=== PATIENT | male | born 1960 | race Caucasian/White ===

== ENCOUNTER → 2017-04-18 14:09 | Outpatient (CLI) | payer OTHER, SELFPAY ==
--- NOTE | 2017-04-18 14:21 | RAD_ITS ---
STUDY: X-RAY - CERVICAL SPINE REASON FOR EXAM: Male, 56 years old. Shoulder pain. TECHNIQUE: 6 view(s) of the cervical spine were obtained including oblique views. COMPARISON: None FINDINGS: Normal anterior atlantoaxial articulation. Normal odontoid process. There is straightening of the normal cervical lordosis. There is multi-level endplate spondylosis. Marked degree of disc space narrowing at the C6-C7 level. Mild degree of disc space narrowing at the C5-C6 level. Normal visualized intervertebral neuroforamina. The soft tissue structures are unremarkable. RAD/Cerv Spine 4 or 5 Views IMPRESSION: Multilevel spondylosis and disc space narrowing at the C5-C6 and C6-C7 levels. Electronically Signed: Hayes Bhardwaj MD at 9:32 EST Tel [phone], Service support ,
== END ==
PROVIDERS: Family Provider Family Medicine; PCP Family Medicine; Visit Provider Nurse Practitioner Family
DX: M54.2 Cervicalgia (principal)
CPT/HCPCS: 72050

== ENCOUNTER → 2017-11-24 12:13 | Outpatient (CLI) | payer OTHER, SELFPAY ==
--- NOTE | 2017-11-24 12:28 | EKG12_ITS ---
Test Reason : PRE OP Blood Pressure : / mmHG Vent. Rate : 057 BPM Atrial Rate : 057 BPM P-R Int : 144 ms QRS Dur : 084 ms QT Int : 414 ms P-R-T Axes : -04 032 024 degrees QTc Int : 402 ms Sinus bradycardia with sinus arrhythmia Otherwise normal ECG Confirmed by JIM MCGHEE, ANDRE ([id number]), deputy editor in chief BELEN SHARMA ([id number] on 11/28/2017 2:37:52 PM Referred By: Ramana Barber Confirmed By:ANDRE FERNANDEZ MD
[2017-11-24 12:43] LABS: Hematocrit 48.8 % (40-54); Hemoglobin 16.4 g/dl (13.0-16.5); Mean Corp Hgb Conc 33.6 g/gl (32-36); Mean Corpuscular Hgb 33.7 pg (27.0-32.0); Mean Corpuscular Volume 100.2 fL (80-94); Mean Platelet Vol. 10.7 fl (6.2-12.0); Platelet Count 210 K/mm3 (150-450); RBC Distribution Width CV 12.8 % (11.6-14.6); RBC Distribution Width SD 46.8 fl (35.1-43.9); Red Blood Count 4.87 M/mm3 (4.6-6.2)
[2017-11-24 12:44] LABS: Scan Indicated on CBC? Y/N NO
[2017-11-24 13:18] LABS: Anion Gap 7 (5-15); BUN 20 mg/dL (7-18); Calcium,Total 9.1 mg/dL (8.5-10.1); Chloride 103 mmol/L (98-107); Creatinine, Serum 1.11 mg/dL (0.70-1.30); EST Glomerular Filtration Rate 72 mL/min (>60); Est Glom Filt Rate - Afr Amer 87 mL/min (>60); Glucose 102 mg/dL (74-106); Potassium 4.7 mmol/L (3.5-5.1); Sodium Level 140 mmol/L (136-145)
== END ==
PROVIDERS: Family Provider Family Medicine; PCP Family Medicine; Referring Provider Orthopaedic Surgery; Visit Provider Orthopaedic Surgery
DX: Z01.810 Encounter for preprocedural cardiovascular examination (principal); Z01.818 Encounter for other preprocedural examination
CPT/HCPCS: 36415; 80048; 85027; 93005

== ENCOUNTER 2021-04-08 20:25 | Emergency (ER) | payer OTHER, SELFPAY ==
[2021-04-08 20:26] VITALS: BP 122/86; PULSE 77; RESP 16; TEMP 36.6; O2SAT 98; BMI 37.0
--- NOTE | 2021-04-08 20:47 | CT_ITS ---
EXAM: CT SPINE - CERVICAL WITHOUT IV REASON FOR EXAM: Male, 60 years old. NECK PAIN pain/injury Individualized dose optimization techniques were used for this CT. TECHNIQUE: Multiplanar images were obtained of the cervical spine. IV contrast was not utilized. COMPARISON: None. FINDINGS: The vertebral bodies do maintain their height. The odontoid process is intact. There is no anterolisthesis or fracture. No pre-vertebral soft tissue swelling is seen. The intravertebral disc height is lost. There are scattered lymph nodes in the neck. There are degenerative changes of the osseous structures. There is bilateral facet arthropathy. There are scattered levels of foraminal stenosis. There are vascular calcifications. There is mild straightening of the normal cervical lordosis. This can suggest neck strain. CT/Spine Cervical without Contras IMPRESSION: Degenerative changes of the cervical spine. There is mild straightening of the normal cervical lordosis. This can suggest neck strain. Electronically Signed: Delfino Norris MD at 21:14 EST ,
--- NOTE | 2021-04-08 20:47 | CT_ITS ---
STUDY: CT BRAIN WITHOUT CONTRAST REASON FOR EXAM: Male, 60 years old. HEADACHE injury TECHNIQUE: Transaxial CT imaging of the brain was performed without administration of intravenous contrast material. Individualized dose optimization techniques were used for this CT. COMPARISON: None FINDINGS: Normal calvarium. Normal soft tissues. Normal size ventricles and extra-axial spaces for the patient''s age. Normal white matter tracts of the cerebral hemispheres. Normal basal ganglia and thalami. Normal brainstem. Normal cerebellum. There is no intracranial hemorrhage. There are no findings of an acute ischemic infarction. Normal visualized paranasal sinuses. ASPECTS 10 CT/Brain/Head without Contrast IMPRESSION: There are no acute intracranial findings. Electronically Signed: Delfino Norris MD at 21:13 EST ,
[2021-04-08] MEDS: Naproxen 250 MG Tablet 500 MG PO (20:53)
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
[2021-04-08] MEDS: Orphenadrine 60 MG/2 ML Ampul IM (21:59)
== END 2021-04-08 22:15 | disposition home or self-care (01) ==
PROVIDERS: Emergency Provider Emergency Medicine; PCP Family Medicine; Visit Provider Emergency Medicine
DX: S16.1XXA Strain of muscle, fascia and tendon at neck level, initial encounter (principal); S00.83XA Contusion of other part of head, initial encounter; V83.5XXA Driver of special industrial vehicle injured in nontraffic accident, initial encounter; Y99.0 Civilian activity done for income or pay; E78.00 Pure hypercholesterolemia, unspecified; J45.909 Unspecified asthma, uncomplicated; Z79.899 Other long term (current) drug therapy
CPT/HCPCS: 70450; 72125; 96372; 99282